=== PATIENT | female | born 1990 | race Caucasian/White ===

== ENCOUNTER 2016-12-22 10:49 | Inpatient (IN) | payer OTHER ==
[~2016-12-22] VITALS: Ht 157.5 cm; Wt 57.4 kg
--- NOTE | ~2016-12-22 | TXPLANREV ---
"PATIENT: CASA MALLORY | | [facility] UNIT #: [id number] | [address] AGE/SEX: 26 F : 86 | [address] | [place] [phone] ADMIT/REG DATE: 12/22/16 | ROOM: [facility] LOC: ADTC | ADTC | Treatment Plan/Staffing Review Date: 01/05/17 Treatment plan was reviewed and determined appropriate as written: Yes Treatment plan was reviewed and the following changes/addition/deletions are necessary: Client is to continue working on treatment plan assignments. She is finishing up with Step 1 and will begin working on feelings letters. Discharge plans were reviewed and determined appropriate as previously documented: No Discharge plans were reviewed and determined to be as follows: Client will be recommended to go to some type of sober living. We will put in applications at both the [facility]. 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 Other pertinent issues discussed during this staffing review include: None at this time. Staff Present: Ani Jessica PRIMARY COUNSELOR: SOHAM Schneider Client Signature Counselor Signature Date Time "
--- NOTE | ~2016-12-22 | INDIVTXPLN ---
"PATIENT: CASA MALLORY | | [facility] UNIT #: [id number] | [address] AGE/SEX: 26 F : 86 | [address] | [place] [phone] ADMIT/REG DATE: 12/22/16 | ROOM: [facility] LOC: ADTC | ADTC | Individualized Treatment Plan Date: 12/29/16 Problem Statement/Issue Identified: Client continues to use alcohol &/or drugs despite ongoing negative consequences, and she did not reach out to others, and instead continued to drink/use. Goal: Client will learn how to identify negative consequences of her addiction, attend AA/NA meetings and meet women in recovery. Objectives/Activities to achieve goal: 1. Client is to complete the How To Get Started packet, process it with counselor and selected pages in group. Due Date:01/03/17 Complete: Incomplete: 2. Client is to complete Step 1, process it with counselor and selected pages in group. Due Date:01/08/17 Complete: Incomplete: 3. Client is to attend AA/NA meetings, ask for and get at least 5 names and numbers of women in recovery and share that list with counselor. Due Date:Ongoing. Complete: Incomplete: Client signature Date Counselor signature Date Outcome/Measurement of Progress Towards Goal: Counselor's signature Date "
--- NOTE | ~2016-12-22 | INDIVTXPLN ---
"PATIENT: CASA MALLORY | | [facility] UNIT #: [id number] | [address] AGE/SEX: 26 F : 86 | [address] | [place] [phone] ADMIT/REG DATE: 12/22/16 | ROOM: [facility] LOC: ADTC | ADTC | Individualized Treatment Plan Date: 01/06/17 Problem Statement/Issue Identified: Client has learned to deny or stuff feelings; needs to learn to identify and process them in a clean/sober manner. Goal: Client will learn how to identify and express feelings in a healthy, clean/sober manner. Objectives/Activities to achieve goal: 1. Client is to write the following people feelings letters, each separately, and process them with counselor: Her children, her parents, her bio mother. Due Date:01/12/17 Complete: Incomplete: Client signature Date Counselor signature Date Outcome/Measurement of Progress Towards Goal: Counselor's signature Date "
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
--- NOTE | 2016-12-22 13:35 | NUR ---
ADMISSION NOTE Rights/Responsibilities: Copy given and explained to client. Signed and accepted by client. Client oriented to physical lay out of the ADTC unit, given Big Book and admission packet. A Chester was assigned. Cintia Client is a 26yr old single female. Brought to tx by [facility] staff where she has been for the past 14 days. Lives in [place], [place]. DOC meth, last used 12/08/16, $30 worth daily. No allergies, No meds. Was searched no contraband found. Initial paperwork and guidelines gone over. Doctor was notified
--- NOTE | 2016-12-22 20:31 | NUR ---
Education 1HR: Clt attended lecture given by counselor on Forgiveness.
--- NOTE | 2016-12-22 23:31 | NUR ---
Tech note : Client participated in rec by making a God box. Client attended an onsite NA meeting. She was checked into her room, gave her first intro and was seen by the
--- NOTE | 2016-12-23 04:12 | NUR ---
Bed Note: Clt lay motionless in bed with eyes closed showing no distress at last two bed checks. First bed check clt was awake and clt came out of room for a drink at 1255 hrs stating having a bad dream.
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
--- NOTE | 2016-12-23 15:28 | NUR ---
Tech Note: Client participated in light stretching for morning exercise and went on an outdoor walk in the afternoon. Client stated that she is working on, "How to Get Started in Treatment."
--- NOTE | 2016-12-23 16:29 | NUR ---
Relapse Prevention, 10/09, 1.0 hours, Client attended and actively participated in relapse prevention education which focused on early warnning signs of relapse.
--- NOTE | 2016-12-23 23:11 | NUR ---
Tech note : client participated in rec by decorating for [employer]. Client went to the alumni meeting and attended an onsite AA meeting.
--- NOTE | 2016-12-24 05:20 | NUR ---
Bed note : Client was motionless with eyes closed at all bed checks.
--- NOTE | 2016-12-24 10:12 | NUR ---
Tech Notes: Client is working on Step 1
--- NOTE | 2016-12-24 12:12 | NUR ---
PEER REVIEW 22:1/1.5 HR: Client and peers participated in peer review. Client did well in expressing & providing appropriate feedback.
--- NOTE | 2016-12-24 12:51 | NUR ---
Education note: Client attended education by [facility]
--- NOTE | 2016-12-24 14:45 | NUR ---
FAMILY CONTACT: Viviana's rehab/pre vocational counselor was contacted and stated they want to have a team meeting next . She was unwilling to give any info w/o johnt signing a release. She heard I will get them signed and sent to her.
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
--- NOTE | 2016-12-24 15:53 | NUR ---
Group 1.5 hr/ 9:1 Clients all discussed spirituality, wanting recovery, cravings and how to stay in today helps. One peer shared how to focus on their values and when sober can be true to self but when using compromise all those values so can use this like a daily affirmation. This client was involved in relating and feedback.
--- NOTE | 2016-12-24 17:19 | NUR ---
SPIRITUaL EDUCATION 1 HR. Today we oriented newcomers and the activity was reading and putting on presentations on portions of TOWARDS SPIRITUALITY.
--- NOTE | 2016-12-24 22:30 | NUR ---
Tech note : Client went for a walk and worked on some crafts. Client celebrated a tech's birthday and attended an onsite NA meeting.
--- NOTE | 2016-12-24 22:43 | NUR ---
SPIRITUaL EDUCATION 1 HR. Today we oriented newcomers and the activity was reading and putting on presentations on portions of TOWARDS SPIRITUALITY.
--- NOTE | 2016-12-25 04:58 | NUR ---
Bed note: Client was moitionless with eyes closed at all bed checks.
--- NOTE | 2016-12-25 12:22 | NUR ---
Group 1.5 Hr Rtio 2:20/Topics today were orientating a new client to group rules and goals. Relapse prevention was also a topic. Client shared how she could relate to relapse issues adn knows she can not go back to where she is from if she wants to remain clean.
--- NOTE | 2016-12-25 15:14 | NUR ---
Tech Note: Client attended Spiritual Enrichment in the morning and went for an outdoor walk in the afternoon. Client stated that she is working on, "How to Get Started in Treatment."
--- NOTE | 2016-12-25 15:52 | NUR ---
Education 1 Hour: Client heard from a recovery speaker who shared his experience, strength and hope.
--- NOTE | 2016-12-25 16:25 | NUR ---
Step education/ Focus was on step 10 "continued to take personal inventory and when we were wrong promply admitted it." Gave them a set of questions to answer on paper and then as a group answered the first 3 and the rest each person shared what they had written. One of the questions was when was the last time I caught myself doing or saying something I did not feel good about? This client participated.
--- NOTE | 2016-12-25 18:52 | NUR ---
Education: 1 Hour. Clients watched Picking up the Pieces for education.
--- NOTE | 2016-12-25 23:29 | NUR ---
tech note: client went on walk for recreation,participated in Guided Meditation & attended onsite AA meeting. Client was redirected by tech for wearing lounge pants out of her room & not wearing shoes in the hallway. SE: AA.
--- NOTE | 2016-12-26 04:08 | NUR ---
Bed note: Client was moitionless with eyes closed at all bed checks.
--- NOTE | 2016-12-26 12:47 | NUR ---
Group 1.5 Hr Ratio 1:11/Topics today were orientatinmg two new members to group rules and goals, feelings letters and dealing with childhood issues. Client shared how bad her childhood was and how she struggles forgiving her mom.
--- NOTE | 2016-12-26 13:00 | NUR ---
PEER REVIEWS 1 HR: Clt participated in peer review process and was able to give open and honest feedback to those receiving a review.
--- NOTE | 2016-12-26 13:35 | NUR ---
Tech Note: Client went on group walk for recreation. Clt is working on Getting Started.
--- NOTE | 2016-12-26 23:05 | NUR ---
TECH NOTE: Client participated in reading guidelines, watched tv/movies. attended optional off site AA meeting SE: all day
--- NOTE | 2016-12-27 04:49 | NUR ---
BED NOTE: Client was in bed, motionless with eyes closed all three bed checks.
--- NOTE | 2016-12-27 14:47 | NUR ---
IS 1 HR: Clkimberly shared what she heard from her account receivable clerk and then we discussed her going to sober living, vs going to [facility]. SHe heard we can work on that next week, and wherever opens up, that's her sign. She voiced how grateful she is to be back here, and how she needs to change her life and work on not getting sucked into drama. She is to work on STep 1 and the powerlessness she has over others, as well as drugs and alcohol.
--- NOTE | 2016-12-27 16:34 | NUR ---
Tech Note: Client is working on Getting Started.
--- NOTE | 2016-12-27 23:42 | NUR ---
TECH NOTE: Client played Catch Phrase for REC, attended off site AA meeting, and watched TV/movies. SE: walk
--- NOTE | 2016-12-28 04:21 | NUR ---
Bed Note: Clt lay motionless in bed with eyes closed showing no distress at all bed checks.
--- NOTE | 2016-12-28 16:24 | NUR ---
Tech Note: Client participated in Big Book Study and stated that she is working on, "How to Get Started in Treatment." Client went for an optional outdoor walk.
--- NOTE | 2016-12-28 22:47 | NUR ---
Client attended the A.A.Panel and participated in Community Clean. Client also attended CONFIGURATION MANAGEMENT ADVISOR Meeting. SE: CONFIGURATION MANAGEMENT ADVISOR Meeting
--- NOTE | 2016-12-29 04:05 | NUR ---
BED NOTE: Client was in bed, and motionless at all three bed checks.
--- NOTE | 2016-12-29 10:07 | NUR ---
Tech notes: Client is working on Getting started
--- NOTE | 2016-12-29 11:30 | NUR ---
AM GRoup 1.5 hr/ 21:2 Clients all read The Wall an allegory and discussed how it related to the 12 steps/recovery. Each client france and shared their wall.
--- NOTE | 2016-12-29 14:02 | NUR ---
Educational note: Client attended speaker for educationKalpesh
--- NOTE | 2016-12-29 16:00 | NUR ---
RECOVERY 101 1 HR/ Clients all filled out consequences list to look at each chemical they have ever used and how many consequences were experiences with each drug. Many shared what they learned from this and their top 3 consequences, they also discussed early stage symptoms of their addiction. Counselor asked the group what would be a definition that includes all stages and this was discussed as well at stages of Denial, Anger, Compliance/defiance, admittance, acceptance and Surrender.
--- NOTE | 2016-12-29 20:40 | NUR ---
Education: 1 Hour. Client attended lecture on "Adult Children of Alcoholics" presented by staff.
--- NOTE | 2016-12-29 23:15 | NUR ---
Tech Note: Client played a game for rec and attended the on unit N.A.Meeting. SE:_N.A.
--- NOTE | 2016-12-30 04:20 | NUR ---
Bed Note: Client was in bed, and motionless at all three bed checks.
--- NOTE | 2016-12-30 13:17 | NUR ---
Tech Note: Nutritional Services presented information for the 1:00 speaker meeting. Client is working on Getting Started.
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
--- NOTE | 2016-12-30 16:24 | NUR ---
Relapse Prevention, 10/10, 1.0 hours, Client attended and actively participated in relapse prevention education which focused on top 5 relapse triggers and how to avoid them.
--- NOTE | 2016-12-30 17:38 | NUR ---
Education Note: Topic was "New Market From Shame" presented by Sangeeta.
--- NOTE | 2016-12-30 22:52 | NUR ---
TECH NOTE: Client did crafts/beads for REC and attended on site AA meeting. SE: walk
--- NOTE | 2016-12-31 04:02 | NUR ---
BED NOTE: Client was in bed, motionless with eyes closed first checks. Sat up and looked at tech last check.
--- NOTE | 2016-12-31 10:46 | NUR ---
Tech notes: Client is working on Step 1
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
--- NOTE | 2016-12-31 16:01 | NUR ---
Education 1 Hour: Client watched the video, "Marijuana" by Mc Hollis.
--- NOTE | 2016-12-31 17:25 | NUR ---
SPIRITUAL EDUCATION; Client's took TOWARD SPIRITUALITY BOOKS again this week and improved their presentations took on new participants to replace those who weren't here this week, and presented their refined skits to those staff available to watch. Excellent presentations!
--- NOTE | 2016-12-31 19:07 | NUR ---
Education 1HR: Clt attended lecture given by counselor on boundaries.
--- NOTE | 2016-12-31 22:34 | NUR ---
Tech note : Client went for a long walk for rec and attended an onsite NA meeting. SE: Group
--- NOTE | 2017-01-01 04:08 | NUR ---
Bed note: Client was in bed motionless, with eyes closed at all bed checks.
--- NOTE | 2017-01-01 09:30 | NUR ---
IS 1 HR: Attempts were made to call her fuel oil truck driver, however, we were having phoen issues and it did not happen. Clt shared about her parents drinking/using and how she feels shut down from them, but heard talking about it will bring healing. She advised she was actually adopted by these people, as her bio Mom gave her up when she was a baby. She stated her parents told her her bio parents , but she isn't sure to believe them, so hopes to some day search and find answers. Good session.
--- NOTE | 2017-01-01 11:30 | NUR ---
AM GRP 1.5 HRS, Ratio 1:10/ Clt offered great feedback to peers who shared about where they are going when done w/ tx, about needing to be quiet and listen, and about how overanalyzing things doesn't help.
--- NOTE | 2017-01-01 13:51 | NUR ---
FAMILY EDUCATION 3 hrs. Client had no family this night but took part in the discussion on the disease concept and the progression and consequences.
--- NOTE | 2017-01-01 15:33 | NUR ---
Tech Note: Client participated in Spiritual Enrichment in the morning and went for an outdoor walk in the afternoon. Client stated that she is working on Step One.
--- NOTE | 2017-01-01 15:43 | NUR ---
Education 1 Hour: Client watched the video, "Doing a 4th and 5th Step" by Janett Ponce.
--- NOTE | 2017-01-01 19:13 | NUR ---
Education 1HR: Clt watched half of video "Pleasures Unwoven" with staff present.
--- NOTE | 2017-01-01 23:15 | NUR ---
Tech note: Clt played a game for rec, attended GM and onsite AA mtg. SE was AA mtg
--- NOTE | 2017-01-02 04:28 | NUR ---
Bed Note: Clt lay motionless in bed with eyes closed showing no distress at all bed checks.
--- NOTE | 2017-01-02 13:08 | NUR ---
Tech Note: Client is working on Step 1 and Feelings Letters.
--- NOTE | 2017-01-02 13:10 | NUR ---
PEER REVIEWS 1 HR: Clt participated in peer reviews and took a risk to give open and honest feedback to those receiving a review.
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
--- NOTE | 2017-01-02 22:42 | NUR ---
Tech note : Client watched movies, played games with peers and walked to an offsite AA meeting.
--- NOTE | 2017-01-03 04:09 | NUR ---
Bed note: Client was in bed with eyes closed and no distress at all bed checks.
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
--- NOTE | 2017-01-03 16:38 | NUR ---
Tech Note: Client attended N.A.Panel and is working on Step 1 and FL's. Client went on a walk today as well.
--- NOTE | 2017-01-03 22:21 | NUR ---
Tech note : Client worked on [employer], Knip or watched sports for rec this evening. Client walked to an offsite AA meeting.
--- NOTE | 2017-01-04 04:07 | NUR ---
Bed note: Client was in bed with eyes closed with no distress at all bed checks
--- NOTE | 2017-01-04 17:01 | NUR ---
Tech Note: Client attended congregation in the morning. Client stated that she is working on Step One.
--- NOTE | 2017-01-04 23:11 | NUR ---
tech note: Client attended onsite AA Panel & participated in Community Clean. Client talked on the phone & watched movies. Client was disrespectful to AA Panel speaker. She continually kept turning around and looking at the clock,speaker made a comment to her "that she wanted it to be over" & she agreed. SE: Raul Longoria Movie
--- NOTE | 2017-01-05 04:34 | NUR ---
tech note: client was motionless in no distress at all bed checks.
--- NOTE | 2017-01-05 10:21 | NUR ---
Tech Notes: Client is working on Step 1
--- NOTE | 2017-01-05 11:04 | NUR ---
Education Note: Client watched video for education today.
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
--- NOTE | 2017-01-05 19:17 | NUR ---
Education: 1 Hour. Client attended "Communications" lecture presented by staff.
--- NOTE | 2017-01-05 21:00 | NUR ---
FAMILY EDUCATION 3 HRS., GROUP 2 HRS. 1:6 Client attended alone and took part in the discussion on the family roles, codependency and detachment. Client related to lost child role while peers see her as scapegoat. She did offer appropriate feedback to peer and his who does not see him as alcoholic.
--- NOTE | 2017-01-05 23:36 | NUR ---
Client attended N.A.Meeting and had family SE: All Day
--- NOTE | 2017-01-06 04:23 | NUR ---
Bed note: Client was in bed with eyes closed with no distress at all bed checks
--- NOTE | 2017-01-06 14:00 | NUR ---
CASE MAN: A call was received from dada's daughter's counselor, and she asked that johnt be able to call her and discuss her daughter's progress on Fri am at 11:30.
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
--- NOTE | 2017-01-06 15:49 | NUR ---
Tech Note: Client participated in light stretching for monring exercise and went for an outdoor walk in the afternoon. Client stated that she is working on Step One.
--- NOTE | 2017-01-06 17:08 | NUR ---
Relapse Prevention, 10/10, 1.0 hours, Client attended and actively participated in relapse prevention education which focused on high risk situations.
--- NOTE | 2017-01-06 19:23 | NUR ---
Education note: 1 hour watched video "enabler".
--- NOTE | 2017-01-06 19:34 | NUR ---
education note: 1 hour lecture by [facility] on hiv/aid/std. plus clients wwere tested for HIV.
--- NOTE | 2017-01-06 22:27 | NUR ---
Tech note: Client went for a long walk for rec, participated in guided meditation and attended an onsite AA meeting.
--- NOTE | 2017-01-07 05:34 | NUR ---
Bed note : Client was in bed with eyes closed and no movement at all bed checks, except last bed check. She sat up in bed.
--- NOTE | 2017-01-07 12:21 | NUR ---
AM GROUP 11:1/1.5 HR: Client and peers helped to ORIENT A NEW PEER TO GROUP GUIDELINES, GOALS AND OBJECTIVES. Client and peers heard several individuals process assignments and some discussion on the disease concept. This client was attentive and offered feedback and personal sharing. She was part of several who were confrontive of older male peer who has all of the answers and was not open to feedback.
--- NOTE | 2017-01-07 13:46 | NUR ---
Tech Note: Outside speaker Adebayo Barker spoke at 1300. Client attended and is working on Feelings Letters.
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
--- NOTE | 2017-01-07 17:17 | NUR ---
SPIRITUAL EDUCATION 1 HR. Topics today were clarifying the differences between spirituality and holiness, and playing the spiritual challenge game where they are asked thought provoking open ended questions. It is meant to inspire spiritual line of thought.
--- NOTE | 2017-01-07 22:49 | NUR ---
Tech Note : Client participated in rec by playing catch phrase and attended an onsite NA meeting.
--- NOTE | 2017-01-07 23:42 | NUR ---
Education: 1 Hour. Client attended "Disease Concept" presented by counselor.
--- NOTE | 2017-01-08 05:41 | NUR ---
Bed Note: Client was motionless with eyes closed at all bed checks except the last, she sat up in bed when I opened the door.
--- NOTE | 2017-01-08 13:50 | NUR ---
PEER REVIEWS 1 HR: Clt participated in peer reviews and took a risk to give open and honest feedback to those receiving a review. Client had a peer review where she heard she carries a lot of resentments and anger, keeps things bottled up, likes to be in control, shes a firecracker, has a temper, wears a mask, holds a lot of pain in, is lonely, holds onto her past, uses humore to cover her pain up. Client shared she felt afraid, mad and glad. The last half hour of group clients talked about loved ones and dying.
--- NOTE | 2017-01-08 15:33 | NUR ---
Tech Note: Client participated in light stretching for morning exercise. Client stated that she is working on Step One and writing Feelings Letters. Client was identified as having been among those who had called a male peer names. Client tried to justify her actions. Clients heard that it is inappropriate to call anyone names.
--- NOTE | 2017-01-08 15:49 | NUR ---
Education 1 Hour: Client heard from a member of the recovery community who shared his experience, strength and hope.
--- NOTE | 2017-01-08 16:30 | NUR ---
Step Education 1 hr/ Focus was on step 12 "having had a spiritual awakening", each person completed a set of questions on paper and then we discussed. This client participated.
--- NOTE | 2017-01-08 19:43 | NUR ---
Tech note: client was off the unit for [employer] banquet and speaker event
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
--- NOTE | 2017-01-09 14:02 | NUR ---
Tech Note: Client went with group on an outdoor walk. Client is working on Feelings Letters.
--- NOTE | 2017-01-09 16:03 | NUR ---
Education Note: Client watched "How to Sabotage Your Treatment"
--- NOTE | 2017-01-09 16:33 | NUR ---
PEER REVIEWS 1.0 HR: Clt participated in peer reviews and took a risk to give open and honest feedback to those receiving a review.
--- NOTE | 2017-01-09 22:59 | NUR ---
TECH NOTE: Client participated in reading [employer], watched tv/movies. SE: TV
--- NOTE | 2017-01-10 04:07 | NUR ---
Bed Note: Clt lay motionless in bed with eyes closed showing no distress at all bed checks.
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
--- NOTE | 2017-01-10 15:27 | NUR ---
Tech Note: Client had a appt with her counselor and is working on Feelings Letters. She had visitors.
--- NOTE | 2017-01-10 22:57 | NUR ---
TECH NOTE: Client played a game for REC, attended off site AA meeting, watched TV/movies. Late to REC. in room in bed @ shift change SE: visits
--- NOTE | 2017-01-11 04:50 | NUR ---
Bed Note: Clt lay motionless in bed with eyes closed showing no distress at all bed checks.
--- NOTE | 2017-01-11 15:32 | NUR ---
Tech Note: Client participated in [employer] and stated that she is working on writing Feelings Letters. Client received a visitor.
--- NOTE | 2017-01-11 23:02 | NUR ---
Tech Note: Client attended A.A.Panel and participated in community clean. Client also attended the OUTREACH WORKER Meeting. SE:SP
--- NOTE | 2017-01-12 04:53 | NUR ---
Bed Note: Client was motionless with eyes closed at all bed checks.
--- NOTE | 2017-01-12 10:25 | NUR ---
Tech notes: Client is working on Fl's
--- NOTE | 2017-01-12 15:46 | NUR ---
Morning Group, 1.5 hours, 10/11 Clients all participated in 2 family sculptures with role-playing, feedback, and how they related.
--- NOTE | 2017-01-12 16:03 | NUR ---
RECOVERY EDUCATION 1 HR. Todays topic was on denial; good, bad, and levels, life problems being 85 percent of recovery, and distorted thinking patterns that can keep us stuck.
--- NOTE | 2017-01-12 16:32 | NUR ---
Education note: Client watched video "[address] on [address]"
--- NOTE | 2017-01-12 18:45 | NUR ---
Education: 1 Hour. Client attended "Feelings" lecture given by staff.
--- NOTE | 2017-01-12 22:14 | NUR ---
Tech note: Client participated in rec by playing [employer] outside. Client attended an onsite NA meeting.
--- NOTE | 2017-01-13 04:17 | NUR ---
BED NOTE: client was in bed, motionless with eyes closed all three bed checks.
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
--- NOTE | 2017-01-13 16:19 | NUR ---
Relapse Prevention, 10/08 ratio, 1.0 hours, Client attended and actively participated in relapse prevention education which focused on personal reactions to high risk situtations such as personal reactions vs. personal responses, addictive thinking, irresponsible thinking, addictive behavior, irresponsible behavior, instant gratification, and emotional consequences to thoughts and actions.
--- NOTE | 2017-01-13 16:39 | NUR ---
Tech Note: Client listened to speaker Iam share his experience, strength and hope. Client is working on Feelings Letters.
--- NOTE | 2017-01-13 23:28 | NUR ---
DISCHARGE NOTE Client was taken to the ER at 1530 with complaint of side pain. At 18:30 the ER called tech station and stated that they were admitting her. The nurse was called and notified. Client's belongings were packed by room mate with staff present. Her belongings are at the tech station and if no one cames to pick them up on thursday we will store them for 30 days
--- NOTE | 2017-01-14 16:00 | NUR ---
Viviana was released from the hospital, and arrangements had been [facility], however, she had been given lots of pain meds, so refused to [facility], when she came here to get her belongings.
[2017-01-15] MEDS ORDERED: NORCO 5-325 TA1 EACH PO (11:47)
--- NOTE | 2017-02-23 12:58 | DS ---
ADMIT: 12/22/2016 RM/LOC: [facility] MR#: [id number] [address] [address] [place] [address] General Discharge Summary SEX: F AGE: 26 : 1990 ADMISSION DATE: 12/22/2016 DISCHARGE DATE: 01/13/2017 ADMITTING DIAGNOSIS: As per history and physical. FINAL DIAGNOSES: 1. Cannabis use disorder, severe. 2. Stimulant/methamphetamine use disorder, severe. 3. Tobacco use disorder. 4. Chemical-induced mood disorder. 5. Post-traumatic stress disorder by history. COMPLICATIONS: None. OPERATIONS: None. CLINICAL HISTORY: The patient is a 26-year-old white female, admitted to the residential care program at the [facility] for treatment of her cannabis use disorder as well as her methamphetamine use disorder. For details of her pattern of usage and problems associated with her ongoing substance abuse and chemical dependency, please see clinical history portion of the dictated history and physical. Please also see dictated history and physical or past medical history and physical exam findings. Laboratory and x-ray summary from this admission none indicated, none performed. HOSPITAL COURSE: The patient was admitted and assigned to her primary counselor, Traci Ernst. She remained in the treatment program from 12/22/2016 through 01/13/2017. While in treatment, she participated in individual therapy and group therapy. She was also given the educational series on substance abuse. She did attend the family education and family group sessions. However, none of her family participated. While in treatment, she was non-accepting of her substance abuse problem. She had to be transferred to the emergency room at one point because of flank pain and abdominal pain. While she was in the ER, she was found to have a kidney stone and ended up being observed overnight in the hospital because of her severe flank pain associated with ureteral colic. While she was in the hospital for her kidney stone, she was given IV morphine for pain and other prescription opiates for her pain. While in treatment, she only completed a few of the primary goals of treatment getting the initial paperwork done. As noted, she had to be transferred to the ER and was in the hospital overnight for observation. This interruption hampered her treatment. She did attend some family education and family group sessions. She did work on identifying obstacles to her sobriety and worked on her own personal relapse prevention plan. She struggled though throughout the whole treatment process getting caught up in other clients issues. Eventually, she was able to take care of herself and worked on her own assignment. While she is in treatment, she was accepted into the [facility]. She ultimately refused to go to the [facility], which had been arranged for her. It was felt that she would do better in a supportive structured environment, but the patient refused to go to the ADMIT: 12/22/2016 RM/LOC: [id number] MR#: [id number] [address] [place] [phone] [place] [address] General Discharge Summary SEX: F AGE: 26 : 1990 [facility]. She was encouraged to continue outpatient treatment then doing weekly individual and weekly group sessions. It was also recommended that she attend 3 to 5 AA or NA meetings per week and maintaining regular contact with the sponsor. CONDITION AT DISCHARGE: Improved somewhat. PROGNOSIS: However, prognosis was felt to be poor in view of her refusal to go to the [facility]. DISCHARGE MEDICATIONS: Included Lamictal 250 mg once daily and this oral cream applied to fungal rash twice daily. Maco Donohue MD/ annalee JOB #: [id number] CC: Maco Donohue MD, Attending Physician FAMILY PHYSICIAN, Family Physician
== END 2017-01-13 18:30 | disposition short-term general hospital (02) | DRG 895 ==
LOC: ADTC 11:16
PROVIDERS: ADMIT Family Medicine
PROC: HZ43ZZZ Group Counseling for Substance Abuse Treatment, 12-Step (ICD-10-PCS; principal; 2016-12-22)
PROC: HZ34ZZZ Individual Counseling for Substance Abuse Treatment, Interpersonal (ICD-10-PCS; principal; 2016-12-22)
DX: F12.20 Cannabis dependence, uncomplicated (principal); F15.20 Other stimulant dependence, uncomplicated; F19.24 Other psychoactive substance dependence with psychoactive substance-induced mood disorder; N20.0 Calculus of kidney; F17.210 Nicotine dependence, cigarettes, uncomplicated; B36.0 Pityriasis versicolor; Z63.72 Alcoholism and drug addiction in family; Z56.0 Unemployment, unspecified; Z65.3 Problems related to other legal circumstances

== ENCOUNTER 2017-01-13 15:40 | Observation (INO) | payer SELFPAY ==
[~2017-01-13] VITALS: Ht 157.5 cm; Wt 61.0 kg
--- NOTE | ~2017-01-13 | HP ---
ADMIT: 01/13/2017 RM/LOC: 525 [facility] MR#: [id number] [address] [id number] CASA MALLORY [address] [place] [address] [place] [address] Pre-OP History and Physical SEX: F AGE: 26 : 1990 DATE OF SERVICE: ADDENDUM: PHYSICAL EXAMINATION: VITAL SIGNS: The patient has a low-grade temp. Vitals are stable. HEART: Regular. LUNGS: Clear. ABDOMEN: Soft, nondistended, and tender to palpation of right upper quadrant. EXTREMITIES: She had no peripheral edema. NEURO: No focal neurologic deficits. Myles Brennan MD/ annalee JOB #: [id number] CC: Myles Brennan, Attending Physician Myles Brennan, Family Physician
[2017-01-15] MEDS ORDERED: NORCO 5-325 TA1 EACH PO (11:47)
--- NOTE | 2017-01-23 10:25 | HP ---
ADMIT: 01/13/2017 RM/LOC: 525 [facility] MR#: [id number] [address] [place] [id number] MOHAMUD CASA [address] [place] [address] Pre-OP History and Physical SEX: F AGE: 26 : 1990 Corrected: 01/15/2017 0909 tere DATE OF SERVICE: HISTORY OF PRESENT ILLNESS: The patient is a 26-year-old female, who presents with 2-day history of severe right upper quadrant, right periscapular, back pain, and nausea. No diarrhea or constipation. She has not had this pain prior in the past. She was worked up in the emergency room with ultrasound showing to have some mild pericholecystic fluid and a large gallstone. She feels a little bit better since admission, bowel rest, and IV fluids. She was placed on some Unasyn, IV antibiotics. PAST SURGICAL HISTORY: Includes two C sections. PAST MEDICAL HISTORY: Otherwise, unremarkable. SOCIAL HISTORY: She is a nondrinker. She smokes cigarettes. FAMILY HISTORY: Noncontributory. MEDICATIONS: Takes no scheduled medications. ALLERGIES: NO KNOWN DRUG ALLERGIES. REVIEW OF SYSTEMS: No headaches. No chest pain. She has had the abdominal pain per HPI. No extremity complaints. No hematologic, neurologic, or psychiatric issues. PHYSICAL EXAMINATION: VITAL SIGNS: She has low-grade temp. HEART: Regular. ADMIT: 01/13/2017 RM/LOC: 525 [facility] MR#: [id number] [address] [place] [id number] [address] [place] [address] Pre-OP History and Physical SEX: F AGE: 26 : 1990 LUNGS: Clear. ABDOMEN: Soft, nondistended, and tender to palpation in right upper quadrant. EXTREMITIES: She has no peripheral edema. NEURO: No focal neurologic deficits. ASSESSMENT: The patient is a 26-year-old with signs, symptoms, and radiographic evidence consistent with acute cholecystitis. PLAN: Plan is for laparoscopic cholecystectomy with cholangiogram later this morning. Risks and benefits were discussed. Myles Brennan MD/ annalee JOB #: [id number] CC: Myles Brennan, Attending Physician Myles Brennan, Family Physician Corrected: 01/15/2017 0909 tere
--- NOTE | 2017-01-23 10:26 | OR ---
ADMIT: 01/13/2017 RM/LOC: 525 [facility] MR#: [id number] [address] [facility] [address] [place] [phone] [address] [place] [address] Operative/Delivery Room Report SEX: F AGE: 26 : 1990 SURGERY DATE: 01/14/2017 SURGEON: Myles Brennan MD PREPROCEDURE DIAGNOSIS: Acute cholecystitis. POSTPROCEDURE DIAGNOSIS: Acute cholecystitis. PROCEDURE: Laparoscopic cholecystectomy with intraoperative cholangiogram. INDICATIONS: The patient is a 26-year-old, who presents with signs, symptoms, and radiographic evidence consistent with acute cholecystitis, who presents for laparoscopic cholecystectomy. FINDINGS: The patient was taken to the operating room. General endotracheal anesthesia was induced. The patient's abdomen was prepped and draped in normal sterile fashion. The case was begun by making a transverse, supraumbilical 5 mm skin incision using #11 blade. A retractable 5 mm port was placed within the abdomen. The abdomen was insufflated with CO2 to an intra-abdominal pressure of 15 mmHg. A camera was placed showing no bowel or vascular injury. A midepigastric 11 mm port as well as 2 right upper quadrant 5 mm ports were placed under direct vision. The case was begun by grasping a distended gallbladder at the fundus and infundibulum using atraumatic clamps. A [place] instrument with electrocautery was used to dissect out the cystic duct and 2 small cystic arterial branches easily. I placed a proximal clip on the duct. The duct was cut in half. The cholangiogram catheter was placed and a cholangiogram was shot, showing no filling defects with easy contrast flow into the duodenal as well as intrahepatic and intrapancreatic ductal filling of contrast. The cholangiogram catheter was then removed. Two distal cystic duct clips were applied and remainder of the duct was then severed. I placed one proximal, one distal clip on both the anterior and posterior cystic arterial branches and divided them with Endo Tami. Remainder of the dissection was then carried out using electrocautery from a posterior to ADMIT: 01/13/2017 RM/LOC: 525 [facility] MR#: [id number] [address] [facility] [address] [place] [phone] [address] [place] [id number] Operative/Delivery Room Report SEX: F AGE: 26 : 1990 anterior fashion, removing the gallbladder from liver bed. The gallbladder was placed in an EndoCatch bag and brought out through the midepigastric port site. On reexamination of the operative site, there was no bleeding. There was no bile leakage. Our clips were in good position. The air was then irrigated and suctioned out. 0.5% Marcaine was injected subdermally, subfascially for postoperative analgesia. The midepigastric fascial incision was closed with [id number] 0 Polysorb suture passer. The air was desufflated. The port sites removed. The skin sites were closed with interrupted 4-0 Vicryl subcuticular skin stitches. The wounds were cleaned and dried Steri-Strips and Tegaderms were applied over the top. Needle, sponge, and instrument counts were correct at the end of the case. The patient was extubated and wheeled to recovery room in good condition. Myles Brennan MD/ annalee JOB #: [id number] CC: Myles Brennan, Attending Physician Myles Brennan, Family Physician
--- NOTE | 2017-01-24 14:44 | ER ---
ADMIT: 01/13/2017 RM/LOC: 525 [facility] MR#: [id number] [address] [address] [address] [place] [address] Emergency Room Report SEX: F AGE: 26 : 1990 DATE: 01/13/2017 ADDENDUM: This patient comes to the ER because she is having severe abdominal pain for the last 2 days. It is in her right upper quadrant and seems to go into her back. She denies any fevers but has been nauseated and vomiting, has no appetite. She rates the pain as a 10/10. On physical exam, her pain is in the right upper quadrant. No rebound tenderness or guarding. Her CBC and her CMP and lipase are normal. Ultrasound showed a large stone in the neck of her gallbladder and Dr. Mcelroy read it as possibly an early cholecystitis. Stone is obstructing. I did consult with Dr. Brennan concerning treatment of this patient and he will admit the patient. In the ER, IV of normal saline was started. She was given a liter of bolus with morphine and Zofran. Please see my T-sheet. KEELY Turner / Ata Pelayo MD / modl JOB #: [id number] CC: Myles Brennan MD, Attending Physician Myles Brennan MD, Family Physician
== END 2017-01-14 16:25 | disposition home or self-care (01) ==
LOC: ER 15:40 → 5MS 18:15
PROVIDERS: ADMIT Surgery
PROC: 0FT44ZZ Resection of Gallbladder, Percutaneous Endoscopic Approach (ICD-10-PCS; principal; 2017-01-14)
PROC: BF03YZZ Plain Radiography of Gallbladder and Bile Ducts using Other Contrast (ICD-10-PCS; principal; 2017-01-14)
DX: K80.10 Calculus of gallbladder with chronic cholecystitis without obstruction (principal); F17.210 Nicotine dependence, cigarettes, uncomplicated; Z98.890 Other specified postprocedural states; Z79.899 Other long term (current) drug therapy

== ENCOUNTER 2017-02-11 14:58 | Emergency (ER) | payer SELFPAY ==
[~2017-02-11 14:58] MED LIST: NORCO 5-325 TA1 EACH PO
--- NOTE | 2017-02-17 23:42 | ER ---
ADMIT: 02/11/2017 RM/LOC: ER [facility] MR#: [id number] [address] [address] [place] [address] Emergency Room Report SEX: F AGE: 26 : 1990 DATE: 02/11/2017 BRIEF ADDENDUM: Please see my T-sheet for complete review of systems, past medical history, and physical exam. CHIEF COMPLAINT: Abdominal pain and vomiting. HISTORY OF PRESENT ILLNESS: This is a 26-year-old white female, who presents to the ER with a day's duration of increasing abdominal pain, nausea, and vomiting. States she underwent a laparoscopic cholecystectomy two weeks ago with Dr. Brennan. Has been recovering unremarkable. She did not make her followup appointment with him this week as she did not have access to her car with the ability to get there. She states over the past day, she has had increasing right upper quadrant pain, nausea, vomiting, diarrhea, and loss of appetite. States she has not been able to keep much down. Has some decreased urination. Pain worse with movement and food, relieved by remaining still. Denies any fever, chills, constipation, bloody stools, or problems urinating. She is status post laparoscopic cholecystectomy Dr. Myles Brennan, bilateral tubal ligation, and x2. COURSE IN THE EMERGENCY ROOM: The patient was seen and examined. She is afebrile and nontoxic. She is in no acute distress. She is alert. Neck is soft and supple. No respiratory distress. No wheezes, rhonchi, or rales. Heart is regular rate and rhythm. Abdomen is soft. She does have some tenderness in the right upper quadrant. However, it is much more generalized. There is no guarding or rebound. McBurney point tenderness. She is able to ambulate to the bathroom without difficulty. She looks quite comfortable. Back is normal. No CVA tenderness. Skin, she looks a little pale. No rash. Skin is warm and dry. Extremities are nontender. No pedal edema. LABORATORY STUDIES: Obtained today. CBC: White count 8.0, hemoglobin 13.6, hematocrit 40.5, and platelets 293. Chemistry: Sodium 137, potassium 4.0, BUN 13, glucose 94, creatinine 0.7, lipase 144, AST 14, ALT 15, and bilirubin 0.5. Urine preg negative. UA, no signs of acute infection. She was given a liter of normal saline IV as well as Zofran 4 mg IV and Toradol 50 mg IV for pain control. She was re-evaluated. Says her pain and nausea is mildly improved. She states she feels she is comfortable to discharge to follow up ADMIT: 02/11/2017 RM/LOC: [facility] MR#: [id number] [address] [place] [phone] [facility] [place] [address] Emergency Room Report SEX: F AGE: 26 : [address] Brennan. States she is going to go to [facility] after this as she is quite hungry. IMPRESSION: 1. Abdominal pain, status post cholecystectomy. 2. Nausea and vomiting. DISPOSITION: The patient was discharged to follow up with Dr. Brennan next week, call to make this appointment. Tylenol and ibuprofen for pain. Continue to increase her fluids. Advance her diet as tolerated. Questions sought and answered to the best of my ability and to the patient's satisfaction. Discharged in stable condition. KEELY Watson / Tru Chahal MD / annalee JOB #: [id number] CC: Tru Chahal MD, Attending Physician Myles Brennan MD, Family Physician
== END 2017-02-11 17:15 | disposition home or self-care (01) ==
LOC: ER 14:58
DX: R10.11 Right upper quadrant pain (principal); R10.84 Generalized abdominal pain; R11.2 Nausea with vomiting, unspecified; Z90.49 Acquired absence of other specified parts of digestive tract